=== PATIENT | male | born 1950 | race Caucasian/White ===

== ENCOUNTER 2018-02-25 19:43 | Inpatient (IN) ==
[2018-02-25] MEDS ORDERED: LORazepam 1 MG Tablet PO ONE (19:55)
--- NOTE | 2018-02-25 20:06 | ED ---
HPI General Chief Complaint: Psychiatric Symptoms Stated Complaint: Psych Screen/VCSO Time Seen by Provider: 02/25/18 19:45 Source: patient and old records reviewed (records from [facility] reviewed) Mode of arrival: other (police) Limitations: no limitations History of Present Illness HPI Narrative: Patient presents to the ED today as a transfer from [facility] in [place]. Patient is a Mehta acted patient who is here for psychiatric evaluation. Patient has been medically cleared from physicians staff at [place]. Blood work and vitals have been unremarkable/ stable for the past 2 days that patient has been Mehta acted at their facility. Patient has no complaints at this time. States that before coming into the hospital he was suicidal and was having thoughts of killing himself with a knife. MD complaint: Reports suicidal ideation Onset (ago): day(s) (2) Duration: constant History of same: No Relieving factors: none Exacerbating factors: none Context: Denies recent alcohol abuse and recent drug abuse Associated psychiatric symptoms: Reports none Associated symptoms: Denies confusion, headache, shortness of breath, nausea, vomiting and syncope Treatments prior to arrival: Reports placed on mental health hold Related Data Home Medications Medication Instructions Recorded Confirmed ibuprofen 600 mg PO TID PRN 02/25/18 02/25/18 lisinopril 20 mg PO DAILY 02/25/18 02/25/18 Allergies Allergy/AdvReac Type Severity Reaction Status Date / Time No Known Allergies Allergy Verified 02/25/18 19:55 Review of Systems ROS: all other systems reviewed are negative PMFSH History History Provided By: Patient, Medical Record and Law Enforcement Medical History Medical History Surgical history unknown (Acute) Depression (Acute) Osteoarthritis (Acute) Social History Social History Substance History: No History of Abuse Second Hand Smoke Exposure: No Smoking Status: Never smoker How Often Do You Have a Drink Containing Alcohol: Never Recent Travel in [facility] within the Last 8 Weeks: No Recent Out of Country Travel within the Last 8 Weeks: No Exam HENMT Head: normocephalic and atraumatic Nose: no nasal discharge and no epistaxis Mouth: moist mucous membranes Eyes Sclera: normal sclerae Pupils: PERRL Neck Neck: trachea midline and no JVD Resp Effort & Inspection: no use of accessory muscles Auscultation: clear to auscultation bilaterally Cardio Rate: regular rate Rhythm: regular rhythm Heart Sounds: no murmurs GI Inspection: non-distended Palpation: soft, no hepatosplenomegaly and nontender Skin General: dry skin (warm) Neuro General: alert and awake Cranial Nerves: other Speech: speech normal Motor: no movement abnormalities noted Extrem General: normal to inspection, no clubbing, no cyanosis and no edema Psych Mood: congruent mood Affect: normal affect Judgment: judgment good Course Initial Documented Vital Signs Temperature 98.3 F 02/25/18 19:47 Pulse Rate 90 02/25/18 19:47 Respiratory Rate 15 02/25/18 19:47 Blood Pressure 168/90 H 02/25/18 19:47 Pulse Oximetry 96 02/25/18 19:47 Last Documented Vital Signs Temperature 98.5 F 02/26/18 04:26 Pulse Rate 70 02/26/18 04:26 Respiratory Rate 18 02/26/18 04:26 Blood Pressure 137/70 02/26/18 04:26 Pulse Oximetry 95 02/26/18 04:26 Medical Decision Making MDM Narrative Medical decision making narrative: Patient is being brought to our facility medically cleared from [facility]. Is on a Mehta act hold Lab work from [facility] records show no abnormality. Vital signs upon arrival are normal blood pressure is 137/70, pulse 70, temp is 98.5, O2 sat room air is 95 Patient medically cleared at 2300 Patient awaits evaluation by psychiatry Medical Screen Exam Complete: Yes Emergency Medical Condition: Yes Differential Diagnosis Differential Diagnosis: suicidal ideation Discharge Plan Discharge Disposition Patient Disposition: 30 Still Patient Discharge Condition Condition: Stable Discharge Details Diagnosis: Suicidal ideation Physicians Team ED Provider: Franki Patel ED Midlevel Provider: Digna Glover Primary Care Provider: UNKNOWN, Rxs /Orders / Referrals /Forms Prescriptions: No Action lisinopril 20 mg Tablet 20 mg PO DAILY RF: 0 ibuprofen 600 mg Tablet 600 mg PO TID PRN (Reason: Pain, Mild) RF: 0 Status ED Status: Medically Cleared
[2018-02-26] MEDS ORDERED: LORazepam 1 MG Tablet PO PRN ×2 (09:54→10:11)
[2018-02-26] MEDS ORDERED: Bisacodyl 10 MG Supp RECTAL PRN (09:54)
[2018-02-26] MEDS ORDERED: Senna/Docusate Sodium 8.6/50 MG Tablet PO PRN (09:54)
[2018-02-26] MEDS ORDERED: Aluminum/Magnesium/Simethacone Susp 30 ML UDC PO PRN (09:54)
--- NOTE | 2018-02-26 10:00 | P.HPPSY ---
Provisional Diagnosis Admission Date: February 26, 2018 09:52 Diboll I.: Major depressive disorder Competence Certification of Person's Competence To Provide Express and Informed Consent I have personally examined Lai Jaquez, a person being served at [facility] on, February 26, 2018 0959. Express and informed consent means consent voluntarily given in writing, by a competent person, after sufficient explanation and disclosure of the subject matter involved to enable the person to make a knowing and willful decision without any element of force, fraud, deceit, duress, or other form of constraint or coercion. This person is 18 years of age or older, is not now known to be incompetent to consent to treatment with a guardian advocate, and does not have a health care surrogate or proxy currently making medical treatment decisions. I have found this person to be one of the following: [xxx] Competent to provide express and informed consent, as defined above, for voluntary admission to this facility and is competent to provide express and informed consent for treatment. He/she has the consistent capacity to make well reasoned, willful, and knowing decisions concerning his or her medical or mental health treatment. The person fully and consistently understands the purpose of the admission for examination/placement and is fully capable of personally exercising all rights assured under [place] Incompetent to provide express and informed consent to voluntary admission, and this is incompetent to provide express and informed consent to treatment. The person must be transferred to involuntary status and a petition for a guardian advocate filed with the Circuit Court. [] Refusing to provide express and informed consent to voluntary admission but is competent to provide express and informed consent for treatment. The person must be discharged or transferred to involuntary status. Form shall be completed within 24 hours of a person's arrival at the receiving facility and filed in the clinical record of each person: 1. Admitted on a voluntary basis 2. Permitted to provide express and informed consent to his/her own treatment 3. Allowed to transfer from involuntary to voluntary status 4. Prior to permitting a person to consent to his or her own treatment after having been previously found incompetent to consent to treatment. 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 Patient was found lying hospital bed noted B, cooperative. Patient stated feeling "tired" stating that he been having these thoughts lately of not wanting to be alive but denies any active thoughts of wanting to end his life at this time. He reports feeling helpless and hopeless along with decreased sleep, energy and concentration but no change in appetite. He mentions that since his longterm he has been feeling disconnected with society, reports having close friends of his several years ago and not having much social support or connection in the community. He states that he had come to the hospital because he had to "get out of where he was, get out of my mind". He mentions having tried to be more active and involved himself in activities but despite that continue to feel worsening depressive mood and increasing suicidal ideation. Patient denies any manic or psychotic symptoms at this time denies any perceptional services or delusions. Family psychiatric history: Denies Past psychiatric history: Previous psychiatric diagnoses depression, denies any previous psychiatric admission, suicide attempt or self-injurious behavior. Substance use history: Tobacco use, alcohol use 2-4 times per week usually 6-7 beers at a time. Patient reports remote marijuana use years ago. Patient denies any detox or rehabs in the past. 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 Allergies: NKDA Social history: Single, retired, worked at [employer] retired in 2016, domiciled currently with roommate (Keiko Paris) since 2013. Patient reports his emergency contact is his sister. - Inpatient Certification I certify that the inpatient services were ordered in accordance with Medicare regulations governing the order. This includes certification that hospital inpatient services are reasonable and necessary and in the case of services not specified as inpatient-only under 42 CFR 419.22(n), that they are appropriately provided as inpatient services in accordance to with the 2-midnight benchmark under 43 CFR 412.3(e) I certify that inpatient psychiatric hospital services are medically necessary. Evaluation and treatment and/or diagnostic testing are expected to improve the patient's condition. The patient needs on a daily basis, active treatment furnished directly by or requiring the supervision of inpatient psychiatric facility personnel. Estimated Total Length of Stay (Days): 7 Plans for Post Hospital Care: Not yet determined Review of Systems All other systems reviewed negative except as stated in HPI PMFSH - History History Provided By: Patient, Medical Record, Law Enforcement - Medical History Medical History: Medical History (Last Updated 02/25/18 @ 21:29 by Najma Gustafson RN) Surgical history unknown Depression Osteoarthritis - Tobacco History Second Hand Smoke Exposure: No Smoking Status: Never smoker - Alcohol History How Often Do You Have a Drink Containing Alcohol: Never - Substance Use History Substance History: No History of Abuse - Travel History Recent Travel in the [place] Within the Last 8 Weeks: No Recent Travel Out of the Country Within the Last 8 Weeks: No - Immunization History Tetanus Immunization: Unsure Quality Measures - Psychiatric History Psychological trauma history: Denies Violence risk to others in the last 6 months: Low Violence risk to self in the last 6 months: Elevated due to recent suicide ideations. - Substance Abuse History Drug or alcohol use in the past 12 months: See HPI - Patient Strengths Patient's strengths (minimum of 2): Verbal and communicative Medications and Allergies Active Medications: Active Medications Acetaminophen (Tylenol) 650 mg PO Q4H PRN PRN Reason: Pain 1-5 or Temp >101F Al Hydrox/Mg Hydrox/Simethicone (Mag-Al Plus Susp Liq) 30 ml PO Q6H PRN PRN Reason: DYSPEPSIA Al Hydroxide/Mg Hydroxide (Milk Of Magnesia Liq) 30 ml PO Q12H PRN PRN Reason: Mild Constipation Bisacodyl (Dulcolax Supp) 10 mg RECTAL DAILY PRN PRN Reason: SEVERE CONSITIPATION Fluoxetine HCl (Prozac) 20 mg PO DAILY THELMA Lactulose (Lactulose Liq) 30 ml PO DAILY PRN PRN Reason: SEVERE CONSITIPATION Lorazepam (Ativan) 1 mg PO Q6H PRN PRN Reason: MODERATE TO SEVERE ANXIETY Senna/Docusate Sodium (Yisel-Colace) 1 tab PO BID PRN PRN Reason: CONSTIPATION Sennosides (Senokot) 17.2 mg PO Q12H PRN PRN Reason: Moderate Constipation Trazodone HCl (Desyrel) 50 mg PO HS PRN PRN Reason: INSOMNIA Allergies Allergy/AdvReac Type Severity Reaction Status Date / Time No Known Allergies Allergy Verified 02/25/18 19:55 Home Medications Medication Instructions Recorded Confirmed Type ibuprofen 600 mg PO TID PRN 02/25/18 02/25/18 History lisinopril 20 mg PO DAILY 02/25/18 02/25/18 History Exam Vital signs: Vital Signs 02/25/18 19:47 02/26/18 04:26 Temperature 98.3 F 98.5 F Pulse Rate 90 70 Respiratory Rate 15 18 Blood Pressure 168/90 H 137/70 Pulse Oximetry 96 95 Intake & Output 02/25/18 02/26/18 02/26/18 18:59 06:59 18:59 Weight 63.503 kg Narrative: Patient not noted to be in acute distress, no gross motor abnormalities, noted to be cachectic and malnourished, no signs of tremor or EPS, no psychomotor agitation or retardation. - Constitutional no acute distress, disheveled, cooperative Mental Status Examination Appearance: Appropriate, Disheveled Consciousness: Alert Orientation: Person, Place, Date/Time Motor Activity: Normal gait Speech: Unremarkable Language: Adequate Fund of Knowledge: Inadequate Attention and Concentration: Adequate Memory: Unremarkable Mood: Sad Affect: Sad Thought Process & Associations: Intact, Linear Thought Content: Appropriate Hallucination Type: None Delusion Type: None Suicidal Ideation: Yes Suicidal Plan: No Suicidal Intention: No Homicidal Ideation: No Homicidal Plan: No Homicidal Intention: No Insight: Fair Judgment: Impulsive Assessment and Plan - Assessment (1) Major depressive disorder Code(s): F32.9 - Major depressive disorder, single episode, unspecified Status : Acute - Plan Plan: Estimated LOS: [] days Patient is a 68-year-old man, single, domiciled with roommate, retired , with a past psychiatric history of depression, no previous psychiatric admissions, no previous suicide attempts who was transferred from [facility] under Mehta act due to suicide ideation. Patient this time continues report depressed mood along with continue suicide ideation which patient agrees to voluntary admission for stabilization. We will start patient on Prozac 20 mg p.o. daily this patient had good response to this in the past, will also add trazodone 50 mg as needed for insomnia, Lorazepam 0.5 mg every 12 hours as needed for anxiety. Collateral admission pending. Social work intervention for psychosocial assessment. Discharge planning in progress. Justification for Continued Inpatient Stay: At risk of further decompensation at lower level care. (1) Major depressive disorder Qualifiers: Major depression recurrence: unspecified whether recurrent Active/Remission status: currently active Major depression episode severity: severe Psychotic features: without psychotic features Qualified Code(s): F32.2 - Major depressive disorder, single episode, severe without psychotic features
[2018-02-26] MEDS: FLUoxetine 20 MG Capsule PO SCH (11:09)
--- NOTE | 2018-02-26 14:24 | P.DIET ---
Nutritional Evaluation Type of nutrition evaluation: initial Nutrition consult regarding: Diet Evaluation Nutrition screening: MDC (Malnutrition) Objective - Diagnosis Major Depressive Disorder - Objective Body Mass Index: 20.1 % IBW: 85 (IBW = 164lb) Body Weight Used for Calculations: Actual Energy Needs - Lower Range (kCal/kg): 30 Energy Needs - Upper Range (kCal/kg): 35 Lower Limit kCal/kg (kCals): 1,905 Upper Limit kCal/kg (kCals): 2,223 Lower Limit Protein Factor (Grams per Kg): 1.1 Upper Limit Protein Factor (Grams per Kg): 1.3 Lower Protein Needs (Protein): 70 Upper Protein Needs (Protein): 83 Dietitian Reviewed in Medical Record: Current diet, Curent medications, Intake & Output, Labs, Medical history Diet Order: Regular Objective Comments: PMH: depression, osteoarthritis Assessment Assessment: Pt currently here for psych evaluation, pt has been cleared by medical staff at [facility], labs are WNL per MD note. MDC for malnutrition received on 02/26. RD to recommend Ensure Enlive TID for PO supplement. Monitor PO and supplement intake. Labs reviewed, dietitian following. Recommendations: 1. RD to recommend Ensure Enlive TID for PO supplement 2. Monitor PO and supplement intake 3. Dietitian following Dietitian to Monitor: Lab values, Supplement acceptance, Intake & Output, PO Intake, Medical course
--- NOTE | 2018-02-26 15:15 | P.CON ---
History of Present Illness Service: [facility] Consult date: 02/26/18 Requesting Physician: Yonatan Rivas Reason for Consult: Hx HTN, corneal cancer Primary Care Provider: UNKNOWN Chief Complaint: "Right plantar area callous, Right leg wound" History of Present Illness: Patient is a 68-year-old male with past medical history of HTN, right corneal cancer who initially came in to [facility] in [place] for psychiatric evaluation and was Mehta acted secondary to suicidal ideation. Patient is now admitted to inpatient psychiatry unit for further evaluation. Consulted for assistance with HTN, history of corneal cancer. Patient seen and examined today. Reports is doing okay. States that he has hypertension and was on lisinopril 10 mg but has never taken the medication. States that he has corneal cancer and had a right corneal surgery twice and has not gone to doctors. Unable to see in the right eye. States that he came in with suicidal ideation but states that he does not have any suicidal ideation right now or homicidal states that for the past 2 years he is unable to maintain his weight. States that he is eating the best that he can however he eats box foods for the most part because he does not want to cook. States he has callous on his right foot that is painful when walking. He places foam to reduce the friction. He also has right leg wound, states it got scraped this morning does not even know about it until this afternoon. Otherwise, denies SOB / dyspnea. Denies chest pain, palpitations, headaches, dizziness. Denies fevers , chills, n/v/d. Denies dysuria. Review of Systems All other systems reviewed negative except as stated in HPI PMFSH - History History Provided By: Patient, Medical Record, Law Enforcement - Medical History Medical History: Medical History (Last Updated 02/26/18 @ 15:45 by IRVIN Marquez) Corneal carcinoma Depression Osteoarthritis - Surgical History Surgical History: Surgical History (Last Updated 02/26/18 @ 15:45 by IRVIN Marquez) History of arthroplasty of right hip - Family History Family History: Family History (Last Updated 02/26/18 @ 15:45 by IRVIN Marquez) Mother Breast cancer - Tobacco History Second Hand Smoke Exposure: No Smoking Status: Never smoker Tobacco Type: Cigarettes Packs Per Day: 1 - Alcohol History How Often Do You Have a Drink Containing Alcohol: Never - Substance Use History Substance History: No History of Abuse - Travel History Recent Travel in the [place] Within the Last 8 Weeks: No Recent Travel Out of the Country Within the Last 8 Weeks: No - Immunization History Tetanus Immunization: Unsure Medications and Allergies Active Medications: Active Medications Acetaminophen (Tylenol) 650 mg PO Q4H PRN PRN Reason: Pain 1-5 or Temp >101F Al Hydrox/Mg Hydrox/Simethicone (Mag-Al Plus Susp Liq) 30 ml PO Q6H PRN PRN Reason: DYSPEPSIA Al Hydroxide/Mg Hydroxide (Milk Of Magnesia Liq) 30 ml PO Q12H PRN PRN Reason: Mild Constipation Bisacodyl (Dulcolax Supp) 10 mg RECTAL DAILY PRN PRN Reason: SEVERE CONSITIPATION Fluoxetine HCl (Prozac) 20 mg PO DAILY THELMA Last Admin: 02/26/18 11:09 Dose: 20 mg Lactulose (Lactulose Liq) 30 ml PO DAILY PRN PRN Reason: SEVERE CONSITIPATION Lorazepam (Ativan) 0.5 mg PO Q12H PRN PRN Reason: MODERATE TO SEVERE ANXIETY Senna/Docusate Sodium (Yisel-Colace) 1 tab PO BID PRN PRN Reason: CONSTIPATION Sennosides (Senokot) 17.2 mg PO Q12H PRN PRN Reason: Moderate Constipation Trazodone HCl (Desyrel) 50 mg PO HS PRN PRN Reason: INSOMNIA Allergies Allergy/AdvReac Type Severity Reaction Status Date / Time No Known Allergies Allergy Verified 02/25/18 19:55 Home Medications Medication Instructions Recorded Confirmed Type ibuprofen 600 mg PO TID PRN 02/25/18 02/25/18 History lisinopril 20 mg PO DAILY 02/25/18 02/25/18 History Physical Exam Vital signs: Vital Signs 02/25/18 19:47 02/26/18 04:26 Temperature 98.3 F 98.5 F Pulse Rate 90 70 Respiratory Rate 15 18 Blood Pressure 168/90 H 137/70 Pulse Oximetry 96 95 Intake & Output 02/25/18 02/26/18 02/26/18 18:59 06:59 18:59 Weight 63.503 kg Narrative: GENERAL: This is a thin appearing, appears older than stated age patient, in no apparent distress. SKIN: Warm and dry. Xerosis BLE. Right plantar area callous. RLE abrasion. HEENT: Normocephalic. Pupils equal round and reactive. Nose without bleeding. Airway patent. NECK: Trachea midline. CARDIOVASCULAR: Regular rate and rhythm without murmurs, gallops, or rubs. RESPIRATORY: Clear to auscultation. Breath sounds equal bilaterally. No wheezes , rales, or rhonchi. GASTROINTESTINAL: Abdomen soft, non-tender, nondistended. Bowel Sounds normoactive x4. MUSCULOSKELETAL: Extremities without clubbing, cyanosis, or edema. NEUROLOGICAL: Awake and alert. Oriented to time, place, person. No focal neuro deficit. Moves all extremities. Normal speech. Assessment and Plan - Plan Patient is a 68-year-old male with past medical history of HTN, right corneal cancer who initially came in to [facility] in [place] for psychiatric evaluation and was Mehta acted secondary to suicidal ideation. Patient is now admitted to inpatient psychiatry unit for further evaluation. Consulted for assistance with HTN, history of corneal cancer. Depression Suicidal Ideation -managed By psychiatry team HTN, hx -not on any meds currently -Monitor BP. Will restart meds if needed Corneal carcinoma -Unable to see on his right eye -Redness and dryness, no pain -Artificial tears and ointment Weight loss -Mostly related to not preparing meals as patient reported -May do ensure with meals Wound, Right leg Right foot plantar callous -Foam dsg, bordered gauze -Change dsg q3days DVT Prop ambulatory Thank you for this consultation. We will follow patient with you. Code Status: Full Code Discussed Condition With: Patient, nursing Discharge Planning: DC disposition by primary team
[2018-02-26] MEDS: Artificial Tears Opth Oint 3.5 GM Tube RIGHT EYE SCH (21:20)
[2018-02-27 07:29] LABS: Baso % (Auto) 0.8 % (0.0-2.0); Eos # (Auto) 0.1 th/mm3 (0.0-0.4); Eos % (Auto) 1.6 % (0.0-4.0); Hematocrit 34.4 % (39.0-51.0); Hemoglobin 12.3 gm/dL (13.0-17.0); Lymph # (Auto) 1.4 th/mm3 (1.0-4.8); Lymph % (Auto) 23.5 % (9.0-44.0); Mean Corpuscular HGB Conc 35.9 % (32.0-36.0); Mean Corpuscular Hemoglobin 34.2 pg (27.0-34.0); Mean Corpuscular Volume 95.2 fL (80.0-100.0); Mean Platelet Volume 7.2 fL (7.0-11.0); Mono # (Auto) 0.7 th/mm3 (0.0-0.9); Mono % (Auto) 11.9 % (0.0-8.0); Neut # (Auto) 3.7 th/mm3 (1.8-7.7); Neut % (Auto) 62.2 % (16.0-70.0); Platelet Count 284 th/mm3 (150-450); Red Blood Count 3.61 mil/mm3 (4.50-5.90); Red Cell Distribution Width 12.6 % (11.6-17.2)
[2018-02-27] MEDS: FLUoxetine 20 MG Capsule PO SCH (08:26)
[2018-02-27 08:30] LABS: Chol/HDL Ratio 2.72 Ratio; HDL Cholesterol 43.3 mg/dL (40.0-60.0); Thyroid Stimulating Hormone 2.11 uIU/mL (0.358-3.740)
[2018-02-27] MEDS: Artificial Tears Opth Oint 3.5 GM Tube RIGHT EYE SCH ×2 (08:37→20:17)
--- NOTE | 2018-02-27 10:59 | P.HPPSY ---
Provisional Diagnosis Admission Date: February 26, 2018 09:52 [place].: Major depressive disorder Competence Certification of Person's Competence To Provide Express and Informed Consent I have personally examined Lai Jaquez, a person being served at [facility] on, February 27, 2018 1025. Express and informed consent means consent voluntarily given in writing, by a competent person, after sufficient explanation and disclosure of the subject matter involved to enable the person to make a knowing and willful decision without any element of force, fraud, deceit, duress, or other form of constraint or coercion. This person is 18 years of age or older, is not now known to be incompetent to consent to treatment with a guardian advocate, and does not have a health care surrogate or proxy currently making medical treatment decisions. I have found this person to be one of the following: [] Competent to provide express and informed consent, as defined above, for voluntary admission to this facility and is competent to provide express and informed consent for treatment. He/she has the consistent capacity to make well reasoned, willful, and knowing decisions concerning his or her medical or mental health treatment. The person fully and consistently understands the purpose of the admission for examination/placement and is fully capable of personally exercising all rights assured under [place] [] Incompetent to provide express and informed consent to voluntary admission, and this is incompetent to provide express and informed consent to treatment. The person must be transferred to involuntary status and a petition for a guardian advocate filed with the Circuit Court. [] Refusing to provide express and informed consent to voluntary admission but is competent to provide express and informed consent for treatment. The person must be discharged or transferred to involuntary status. Form shall be completed within 24 hours of a person's arrival at the receiving facility and filed in the clinical record of each person: 1. Admitted on a voluntary basis 2. Permitted to provide express and informed consent to his/her own treatment 3. Allowed to transfer from involuntary to voluntary status 4. Prior to permitting a person to consent to his or her own treatment after having been previously found incompetent to consent to treatment. History of Present Illness History of Present Illness: This is a 68-year-old male with a past psychiatric history of depression who presents to the hospital as a Mehta Act for suicidal ideation. 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 He explains he had a girlfriend of 15 years who helped him through some issues who also in 2011 from emphysema. He has been feeling depressed for the past 6 months and feels the worst in the morning with bad thoughts about the past. States he wakes up and asks himself whether he really wants to go through the day. No suicidal attempt, but he states "it seems like it's getting there." No prior suicidal attempts. About 2-3 nocturnal awakenings per night. Appetite is good. He is tired throughout the day and complains of lack of energy. He states that he is not as active as he would like to be and explains that his physical constraints (right corneal carcinoma, right hip arthroplasty, and foot callus) do not help. States the walker he uses at the hospital has helped with his activity. No past physical or sexual abuse. No auditory hallucinations, but complains of vague "funny" visual hallucinations (lights, not people). Complains of abdominal tightness and bilateral shoulder stiffness. Past Psychiatric History: Depression in 1999 after mother (treated w / Prozac). Past Medical History: HTN, Right corneal neoplasm treated in 2016 with lack of follow up, Right hip arthroplasty (6 years ago) Social History: Economics degree from [employer] in [place]. Has worked at [employer] for the past 11-12 years. Was at age of 19 for 2-3 years and has had several relationships since then. Female sexual preference. No children. Currently lives in an apartment on [address] with 1 roommate, but states that this is another stressor and he is not comfortable living there. He has 1 sister with an "ok" relationship who lives in [place], [place]. He thought about relocating to [place] but decided not to because he states it is too cold there. Smoker (1 pack per day), Drinks a 4 or 6 pack of alcohol (beer) about 3-4 days per week - did attend a Detox program in his 20s. Has had multiple DUIs and hasn 't been able to drive since 2001. Smoked marijuana in the past. Family Psychiatric History: None per patient Allergies: NKDA - Inpatient Certification I certify that the inpatient services were ordered in accordance with Medicare regulations governing the order. This includes certification that hospital inpatient services are reasonable and necessary and in the case of services not specified as inpatient-only under 42 CFR 419.22(n), that they are appropriately provided as inpatient services in accordance to with the 2-midnight benchmark under 43 CFR 412.3(e) I certify that inpatient psychiatric hospital services are medically necessary. Evaluation and treatment and/or diagnostic testing are expected to improve the patient's condition. The patient needs on a daily basis, active treatment furnished directly by or requiring the supervision of inpatient psychiatric facility personnel. Estimated Total Length of Stay (Days): 7 Plans for Post Hospital Care: Not yet determined PMFSH - History History Provided By: Patient - Medical History Medical History: Medical History (Last Updated 02/26/18 @ 15:45 by IRVIN Marquez) Corneal carcinoma Depression Osteoarthritis - Surgical History Surgical History: Surgical History (Last Updated 02/26/18 @ 15:45 by IRVIN Marquez) History of arthroplasty of right hip - Family History Family History: Family History (Last Updated 02/26/18 @ 15:45 by IRVIN Marquez) Mother Breast cancer - Tobacco History Second Hand Smoke Exposure: No Tobacco Use In Past 30 Days: Yes Smoking Status: Current every day smoker Tobacco Type: Cigarettes Packs Per Day: 1 - Alcohol History How Often Do You Have a Drink Containing Alcohol: Monthly or less - Substance Use History Substance History: No History of Abuse - Travel History Recent Travel in the USA Within the Last 8 Weeks: No Recent Travel Out of the Country Within the Last 8 Weeks: No - Immunization History Tetanus Immunization: Unsure Medications and Allergies Active Medications: Active Medications Acetaminophen (Tylenol) 650 mg PO Q4H PRN PRN Reason: Pain 1-5 or Temp >101F Al Hydrox/Mg Hydrox/Simethicone (Mag-Al Plus Susp Liq) 30 ml PO Q6H PRN PRN Reason: DYSPEPSIA Al Hydroxide/Mg Hydroxide (Milk Of Magnesia Liq) 30 ml PO Q12H PRN PRN Reason: Mild Constipation Artificial Tears (Tears Naturale Opth Drops) 1 drop RIGHT EYE Q4H PRN PRN Reason: Itching eye Artificial Tears (Lacrilube Opth Oint) 1 applicatio RIGHT EYE BID [facility] Last Admin: 02/27/18 08:37 Dose: 1 applicatio Bacitracin (Baciguent Oint) 1 applicatio TOPICAL EVERY OTHER DAY [facility] Bisacodyl (Dulcolax Supp) 10 mg RECTAL DAILY PRN PRN Reason: SEVERE CONSITIPATION Fluoxetine HCl (Prozac) 20 mg PO DAILY [facility] Last Admin: 02/27/18 08:26 Dose: 20 mg Lactulose (Lactulose Liq) 30 ml PO DAILY PRN PRN Reason: SEVERE CONSITIPATION Lorazepam (Ativan) 0.5 mg PO Q12H PRN PRN Reason: MODERATE TO SEVERE ANXIETY Senna/Docusate Sodium (Yisel-Colace) 1 tab PO BID PRN PRN Reason: CONSTIPATION Sennosides (Senokot) 17.2 mg PO Q12H PRN PRN Reason: Moderate Constipation Trazodone HCl (Desyrel) 50 mg PO HS PRN PRN Reason: INSOMNIA Allergies Allergy/AdvReac Type Severity Reaction Status Date / Time No Known Allergies Allergy Verified 02/25/18 19:55 Home Medications Medication Instructions Recorded Confirmed Type ibuprofen 600 mg PO TID PRN 02/25/18 02/25/18 History lisinopril 20 mg PO DAILY 02/25/18 02/25/18 History Results - Labs CBC & Chem 7: 02/27/18 06:04 Labs: Laboratory Results - last 24 hr 02/27/18 02/27/18 06:04 06:04 WBC 6.0 RBC 3.61 L Hgb 12.3 L Hct 34.4 L MCV 95.2 MCH 34.2 H MCHC 35.9 RDW 12.6 Plt Count 284 MPV 7.2 Neut % (Auto) 62.2 Lymph % (Auto) 23.5 [place] % (Auto) 11.9 H Eos % (Auto) 1.6 Baso % (Auto) 0.8 Neut # (Auto) 3.7 Lymph # (Auto) 1.4 [place] # (Auto) 0.7 Eos # (Auto) 0.1 Baso # (Auto) 0.0 WBC Differential . Differential Comment Auto diff final Triglycerides 74 Cholesterol 118 L LDL Cholesterol, Calc 60 HDL Cholesterol 43.3 Cholesterol/HDL Ratio 2.72 Vitamin B12 387 TSH 2.110 Exam Vital signs: Vital Signs 02/26/18 17:15 02/26/18 18:00 02/27/18 06:00 Temperature 98.1 F 97.6 F 98.2 F Pulse Rate 80 65 70 Respiratory Rate 18 16 16 Blood Pressure 158/83 H 125/73 156/72 H Pulse Oximetry 99 97 92 L Intake & Output 02/26/18 02/27/18 02/27/18 18:59 06:59 18:59 Weight 62.34 kg 47.1 kg Other: Weight On Admission 62.34 kg Mental Status Examination Appearance: Appropriate, Disheveled Consciousness: Alert Orientation: Person, Place, Date/Time Motor Activity: Normal gait Speech: Unremarkable Language: Adequate Fund of Knowledge: Inadequate Attention and Concentration: Adequate Memory: Unremarkable Mood: Sad Affect: Sad, Blunt Thought Process & Associations: Intact, Linear Thought Content: Appropriate Hallucination Type: Visual (vague ) Delusion Type: None Suicidal Ideation: Yes Suicidal Plan: No Suicidal Intention: No Homicidal Ideation: No Homicidal Plan: No Homicidal Intention: No Insight: Fair Judgment: Poor Assessment and Plan - Assessment (1) Suicidal ideation Code(s): R45.851 - Suicidal ideations Status: Acute (2) Major depressive disorder Code(s): F32.9 - Major depressive disorder, single episode, unspecified Status : Acute - Plan Plan: This is a 68-year-old male with a past psychiatric history of depression who presents to the hospital as a mehta act due to a major depressive episode with suicidal ideation but no attempts. - Admit for stabilization - Administer 20 mg Prozac - Follow up daily - Re-assess in one week (2) Major depressive disorder Qualifiers: Qualified Code(s): F33.2 - Major depressive disorder, recurrent severe without psychotic features
--- NOTE | 2018-02-27 11:05 | P.PNPSY ---
Subjective Remarks: Patient initially admitted by Dr. Yonatan Rivas, his H&P reviewed and agreed with. Patient is signed in on a voluntary status. I agree with that. I have also finished the initial psychiatric admission template orders. Patient seen in his room with nurse Giselle medical student Natalia. Patient gives multiple month history of increased depression with mid insomnia and a.m. energy sad mood throughout the day he states his appetite is poor he has lost some weight, says his concentration and attention is fair defiant he is more short tempered and not coping as well with minor stress. He is isolated from his friends. He denies voices or visions with this. He does acknowledge some mild increase alcohol use. He states he was a more serious drinking in the past as a young man he has had 3-4 DUIs but denies any other legal issues with that. States he experimented with marijuana as a younger man also. He states there is some mild suicidal ideation at this time. He states he did see a psychiatrist in the early around the time of the of his mother was on various antidepressants for a while stating the Prozac did not help him at that time. Kang denies inpatient psychiatric care. Patient states she was once in his early 20s for about 2 or 3 years there is no children. He was dating a lady for about 15 years for the past 24 around 2009 or . He has had no significant relationships since then. He lives with a roommate. Always thinking about leaving that situation. 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 At this time patient continues to meet criteria for inpatient psychiatric hospitalization we will continue him with his Prozac no change and his trazodone no change will refrain from any benzodiazepines. Denies any history of physical or sexual abuse. Health history in the family. He does have a sister lives in [place] they states she is fairly close for now will assess various options for this gentleman Review of Systems Patient has cancer in his right eye complains of some chronic pain towards his right hip and right leg old fracture right hip Mental Status Examination Appearance: Appropriate Consciousness: Alert Orientation: Person, Place, Date/Time, Situation Motor Activity: Normal gait Speech: Unremarkable Language: Adequate Fund of Knowledge: Adequate Attention and Concentration: Adequate Memory: Unremarkable Mood: Sad Affect: Other (Decreased range and intensity) Thought Process & Associations: Intact, Linear Thought Content: Appropriate Hallucination Type: None Delusion Type: None Suicidal Ideation: Yes Suicidal Plan: No Suicidal Intention: No Homicidal Ideation: No Homicidal Plan: No Homicidal Intention: No Insight: Fair Judgment: Impulsive Assessment and Plan - Assessment (1) Major depressive disorder Code(s): F32.9 - Major depressive disorder, single episode, unspecified Status : Acute - Plan Plan: Patient remains severely depressed with vague suicidal ideation, without psychosis. Justification for Continued Inpatient Stay: At this time patient with decompensated placed in a lower level of care Discharge Planning: To be determined past back to his apartment perhaps consideration of relocating closer to his sister Request Healthcare Surrogate/Guardian Advocate?: No (1) Major depressive disorder Qualifiers: Major depression recurrence: recurrent Active/Remission status: currently active Major depression episode severity: severe Psychotic features: without psychotic features Qualified Code(s): F33.2 - Major depressive disorder, recurrent severe without psychotic features
[2018-02-27 15:15] LABS: Hemoglobin A1c 5.6 % (4.3-6.0)
--- NOTE | 2018-02-27 15:29 | P.PNIM ---
Subjective Interval history: Follow-up visit depression, HTN. Patient seen and examined today. Reports he is doing okay. Discussed with patient elevated BP. States that he probably has elevated BP because he has a new environment. Otherwise, denies pain and discomfort. Denies SOB/ dyspnea. Denies chest pain, palpitations, headaches, dizziness. Denies fevers, chills, n/v/d. Denies dysuria. Physical Exam Vital signs: Vital Signs 02/26/18 17:15 02/26/18 18:00 02/27/18 06:00 Temperature 98.1 F 97.6 F 98.2 F Pulse Rate 80 65 70 Respiratory Rate 18 16 16 Blood Pressure 158/83 H 125/73 156/72 H Pulse Oximetry 99 97 92 L Intake & Output 02/26/18 02/27/18 02/27/18 18:59 06:59 18:59 Weight 62.34 kg 47.1 kg Other: Weight On Admission 62.34 kg Narrative: GENERAL: This is a thin appearing, appears older than stated age patient, in no apparent distress. SKIN: Warm and dry. Xerosis BLE. Right plantar area callous. RLE abrasion. HEENT: Normocephalic. Pupils equal round and reactive. Nose without bleeding. Airway patent. NECK: Trachea midline. CARDIOVASCULAR: Regular rate and rhythm without murmurs, gallops, or rubs. RESPIRATORY: Clear to auscultation. Breath sounds equal bilaterally. No wheezes , rales, or rhonchi. GASTROINTESTINAL: Abdomen soft, non-tender, nondistended. Bowel Sounds normoactive x4. MUSCULOSKELETAL: Extremities without clubbing, cyanosis, or edema. NEUROLOGICAL: Awake and alert. Oriented to time, place, person. No focal neuro deficit. Moves all extremities. Normal speech. Results - Labs CBC & Chem 7: 02/27/18 06:04 Laboratory Results - last 24 hr 02/27/18 02/27/18 06:04 06:04 WBC 6.0 RBC 3.61 L Hgb 12.3 L Hct 34.4 L MCV 95.2 MCH 34.2 H MCHC 35.9 RDW 12.6 Plt Count 284 MPV 7.2 Neut % (Auto) 62.2 Lymph % (Auto) 23.5 [place] % (Auto) 11.9 H Eos % (Auto) 1.6 Baso % (Auto) 0.8 Neut # (Auto) 3.7 Lymph # (Auto) 1.4 [place] # (Auto) 0.7 Eos # (Auto) 0.1 Baso # (Auto) 0.0 WBC Differential . Differential Comment Auto diff final Triglycerides 74 Cholesterol 118 L LDL Cholesterol, Calc 60 HDL Cholesterol 43.3 Cholesterol/HDL Ratio 2.72 Vitamin B12 387 TSH 2.110 Assessment and Plan - Plan Patient is a 68-year-old male with past medical history of HTN, right corneal cancer who initially came in to [facility] in [place] for psychiatric evaluation and was Mehta acted secondary to suicidal ideation. Patient is now admitted to inpatient psychiatry unit for further evaluation. Consulted for assistance with HTN, history of corneal cancer. Depression Suicidal Ideation -managed By psychiatry team HTN, hx -not on any meds currently, previously was on Lisinopril 10mg -BP 150s, Start lisinopril 10mg daily -Monitor BP. Corneal carcinoma -Unable to see on his right eye -Redness and dryness, no pain -Artificial tears and ointment Weight loss -Mostly related to not preparing meals as patient reported -May do ensure with meals Wound, Right leg Right foot plantar callous -Foam dsg, bordered gauze -Change dsg q3days DVT Prop ambulatory CODE STATUS Full Code Discussed with patient, nursing Discharge Planning: DC disposition by primary team
[2018-02-27] MEDS: traZODone 50 MG Tablet PO PRN (20:16)
[2018-02-28 08:43] LABS: Albumin 3.1 g/dL (3.4-5.0); Anion Gap 7 meq/L (5-15); Aspartate Aminotransferase 22 U/L (15-37); Blood Urea Nitrogen 12 mg/dL (7-18); Calcium 8.2 mg/dL (8.5-10.1); Carbon Dioxide 26.8 meq/L (21.0-32.0); Chloride 107 meq/L (98-107); Glomerular Filtration Rate Greater Than 89 mL/min (>89); Glucose,Random 81 mg/dL (74-106); Potassium 3.6 meq/L (3.5-5.1); Sodium 141 meq/L (136-145)
[2018-02-28 08:44] LABS: Alanine Aminotransferase 18 U/L (12-78)
[2018-02-28 08:46] LABS: Alkaline Phosphatase 63 U/L (45-117); Total Protein 6.7 g/dL (6.4-8.2)
[2018-02-28] MEDS ORDERED: Lisinopril 10 MG Tablet PO SCH (09:00)
--- NOTE | 2018-02-28 09:08 | P.PNPSY ---
Subjective Remarks: Patient was seen and examined. He mentions he is "doing better, slept well, and had pleasant dreams." He states he has calmed down and is no longer having suicidal thoughts. No longer having vague visual hallucinations. No auditory hallucination. No HI or SI. He questions how much longer he would have to stay here and acknowledges he may need at least one more day because he states he "still has some issues to address" with himself. Appetite is good, however he complains of constipation. No abdominal pain or hematochezia. Mental Status Examination Appearance: Appropriate Consciousness: Alert Orientation: Person, Place, Date/Time Motor Activity: Normal gait Speech: Slow Language: Adequate Fund of Knowledge: Inadequate Attention and Concentration: Adequate Memory: Unremarkable Mood: Sad Affect: Sad, Blunt Thought Process & Associations: Intact, Linear Thought Content: Appropriate Delusion Type: None Suicidal Ideation: No Suicidal Plan: No Suicidal Intention: No Homicidal Ideation: No Homicidal Plan: No Homicidal Intention: No Insight: Fair Judgment: Poor Assessment and Plan - Assessment (1) Suicidal ideation Code(s): R45.851 - Suicidal ideations Status: Acute (2) Major depressive disorder Code(s): F32.9 - Major depressive disorder, single episode, unspecified Status : Acute - Plan Plan: This is a 68 year-old male with a past history of depression who presents voluntarily with an acute episode of major depressive disorder with suicidal ideation. Patient is sleeping better and his suicidal thoughts have subsided. However, he acknowledges he may need more time here to fully recover. - Continue 20 mg Prozac once daily - Continue 50 mg Trazadone once daily at bedtime - Continue follow-up daily - Re-assess in a few days for possible discharge Request Healthcare Surrogate/Guardian Advocate?: No (2) Major depressive disorder Qualifiers: Qualified Code(s): F33.2 - Major depressive disorder, recurrent severe without psychotic features
[2018-02-28] MEDS: Artificial Tears Opth Oint 3.5 GM Tube RIGHT EYE SCH ×2 (10:10→20:24)
[2018-02-28] MEDS: Artificial Tears Opth Drops 15 ML Bottle RIGHT EYE PRN (10:10)
[2018-02-28] MEDS: FLUoxetine 20 MG Capsule PO SCH (10:10)
--- NOTE | 2018-02-28 10:52 | P.PNPSY ---
Subjective Remarks: Patient seen in his room with nurse Mona, chart reviewed, patient compliant medication. Patient states he slept somewhat better last night since the unit was quieter. He does state he feels less anxious and intense. He does denies suicidality at this time. Though there is still a hopelessness and helplessness and him and you will be with him. Patient does express himself well show some insight. We will transfer patient to the B unit so he may participate in the more active therapeutic milieu. For now continue medication no change Review of Systems All other systems reviewed negative except as stated in HPI Mental Status Examination Appearance: Appropriate Consciousness: Alert Orientation: Person, Place, Date/Time Motor Activity: Normal gait Speech: Unremarkable Language: Adequate Fund of Knowledge: Adequate Attention and Concentration: Adequate Memory: Unremarkable Mood: Sad Affect: Sad, Blunt Thought Process & Associations: Intact, Linear Thought Content: Appropriate Delusion Type: None Suicidal Ideation: No Suicidal Plan: No Suicidal Intention: No Homicidal Ideation: No Homicidal Plan: No Homicidal Intention: No Insight: Fair Judgment: Poor Assessment and Plan - Assessment (1) Major depressive disorder Code(s): F32.9 - Major depressive disorder, single episode, unspecified Status : Acute - Plan Plan: Patient continues depressed though slightly less anxious. Compliant medication. No other still some hopelessness and helplessness involved with this. We will transfer patient to the B unit for participation in a more therapeutic environment Justification for Continued Inpatient Stay: At this time patient with decompensated placed on a lower level of care Discharge Planning: To be determined probably back to his home Request Healthcare Surrogate/Guardian Advocate?: No (1) Major depressive disorder Qualifiers: Major depression recurrence: recurrent Active/Remission status: currently active Major depression episode severity: severe Psychotic features: without psychotic features Qualified Code(s): F33.2 - Major depressive disorder, recurrent severe without psychotic features
--- NOTE | 2018-02-28 13:12 | ECG ---
Date Performed: 02/27/2018 Time Performed: 13:30:25 PTAGE: 68 years EKG: Sinus rhythm NORMAL ECG NO PREVIOUS TRACING DOCTOR: Obdulia Castellano Interpretating Date/Time 02/28/2018 13:09:08
--- NOTE | 2018-02-28 16:40 | P.PNIM ---
Subjective Interval history: Follow-up visit depression, HTN. Patient seen and examined today. Reports he is doing okay. States he took his lisinopril today. Denies pain and discomfort. Denies SOB/ dyspnea. Denies chest pain, palpitations, headaches, dizziness. Denies fevers, chills, n/v/d. Denies dysuria. Physical Exam Vital signs: Vital Signs 02/28/18 04:47 Temperature 97.7 F Pulse Rate 65 Respiratory Rate 16 Blood Pressure 168/82 H Pulse Oximetry 93 L Intake & Output 02/27/18 02/28/18 02/28/18 18:59 06:59 18:59 Weight 47.1 kg Narrative: GENERAL: This is a thin appearing, appears older than stated age patient, in no apparent distress. SKIN: Warm and dry. Xerosis BLE. Right plantar area callous. RLE abrasion. HEENT: Normocephalic. Pupils equal round and reactive. Nose without bleeding. Airway patent. NECK: Trachea midline. CARDIOVASCULAR: Regular rate and rhythm without murmurs, gallops, or rubs. RESPIRATORY: Clear to auscultation. Breath sounds equal bilaterally. No wheezes , rales, or rhonchi. GASTROINTESTINAL: Abdomen soft, non-tender, nondistended. Bowel Sounds normoactive x4. MUSCULOSKELETAL: Extremities without clubbing, cyanosis, or edema. NEUROLOGICAL: Awake and alert. Oriented to time, place, person. No focal neuro deficit. Moves all extremities. Normal speech. Results - Labs CBC & Chem 7: 02/27/18 06:04 02/28/18 07:38 Laboratory Results - last 24 hr 02/27/18 02/28/18 06:04 07:38 Sodium 141 Potassium 3.6 Chloride 107 Carbon Dioxide 26.8 Anion Gap 7 BUN 12 Creatinine 0.72 Estimated GFR Greater than 89 Random Glucose 81 Hemoglobin A1c 5.6 Calcium 8.2 L Total Bilirubin 0.4 AST 22 ALT 18 Alkaline Phosphatase 63 Total Protein 6.7 Albumin 3.1 L Assessment and Plan - Plan Patient is a 68-year-old male with past medical history of HTN, right corneal cancer who initially came in to [facility] in [place] for psychiatric evaluation and was Mehta acted secondary to suicidal ideation. Patient is now admitted to inpatient psychiatry unit for further evaluation. Consulted for assistance with HTN, history of corneal cancer. Depression Suicidal Ideation -managed By psychiatry team HTN, hx -not on any meds currently, previously was on Lisinopril 10mg -Lisinopril 10mg daily -Monitor BP trend. Slightly elevated today. Will trend in a few more days. Corneal carcinoma -Unable to see on his right eye -Redness and dryness, no pain -Artificial tears and ointment Weight loss -Mostly related to not preparing meals as patient reported -May do ensure with meals Wound, Right leg Right foot plantar callous -Foam dsg, bordered gauze -Change dsg q3days DVT Prop ambulatory CODE STATUS Full Code Discussed with patient, nursing Discharge Planning: DC disposition by primary team
[2018-02-28] MEDS: traZODone 50 MG Tablet PO PRN (20:45)
[2018-03-01] MEDS ORDERED: Lisinopril 20 MG Tablet PO SCH (09:00)
[2018-03-01] MEDS: Artificial Tears Opth Drops 15 ML Bottle RIGHT EYE PRN (09:11)
[2018-03-01] MEDS: FLUoxetine 20 MG Capsule PO SCH (09:13)
[2018-03-01] MEDS: Artificial Tears Opth Oint 3.5 GM Tube RIGHT EYE SCH ×2 (09:14→21:46)
--- NOTE | 2018-03-01 13:46 | P.PNPSY ---
Subjective Remarks: Reviewed electronic medical record and discussed case with staff. Follow up was conducted in the patient's room with SAMI Hoffman present. His nurse reports that he has shown some improvement. She advises that he has been compliant with his medications and has had no behavioral issues. He reports that he's feeling better and eating okay. He states that he could "sleep better". His affect is somber but he does laugh occasionally at appropriate times. He denies being suicidal or experiencing AVH. Mental Status Examination Appearance: Appropriate Consciousness: Alert Orientation: Person, Place, Date/Time Motor Activity: Normal gait Speech: Unremarkable Language: Adequate Fund of Knowledge: Adequate Attention and Concentration: Adequate Memory: Unremarkable Mood: Sad Affect: Sad, Blunt Thought Process & Associations: Intact, Linear Thought Content: Appropriate Hallucination Type: Visual (vague ) Delusion Type: None Suicidal Ideation: No Suicidal Plan: No Suicidal Intention: No Homicidal Ideation: No Homicidal Plan: No Homicidal Intention: No Insight: Fair Judgment: Poor Assessment and Plan - Assessment (1) Major depressive disorder Code(s): F32.9 - Major depressive disorder, single episode, unspecified Status : Acute - Plan Plan: Patient will be reevaluated by the attending psychiatrist. Continue with current treatment plan. Justification for Continued Inpatient Stay: Moving this patient to a less restrictive environment would likely result in decompensation. Request Healthcare Surrogate/Guardian Advocate?: No (1) Major depressive disorder Qualifiers: Major depression recurrence: recurrent Active/Remission status: currently active Major depression episode severity: severe Psychotic features: without psychotic features Qualified Code(s): F33.2 - Major depressive disorder, recurrent severe without psychotic features
--- NOTE | 2018-03-01 14:04 | P.DIET ---
Nutritional Evaluation Type of nutrition evaluation: follow-up Nutrition consult regarding: Diet Evaluation Nutrition screening: MDC (Malnutrition) Subjective Subjective Comments: Pt paritcipating in a group session when visit attempted. Nursing Staff reports pt "really good" w/po intake; 100% po for meals today. Objective - Diagnosis Major Depressive Disorder - Objective % IBW: 85 (IBW = 164lb) Body Weight Used for Calculations: Actual Energy Needs - Lower Range (kCal/kg): 30 Energy Needs - Upper Range (kCal/kg): 35 Lower Limit kCal/kg (kCals): 1,905 Upper Limit kCal/kg (kCals): 2,223 Lower Limit Protein Factor (Grams per Kg): 1.1 Upper Limit Protein Factor (Grams per Kg): 1.3 Lower Protein Needs (Protein): 70 Upper Protein Needs (Protein): 83 Dietitian Reviewed in Medical Record: Current diet, Curent medications, Intake & Output, Labs, Medical history Diet Order: Regular Objective Comments: PMH: depression, osteoarthritis A1C 5.6 Feeding - Current PO Supplement Current Supplement: Ensure Enlive Current Frequency of Supplement: Three times a day Current kCals Provided by Supplement: 350 Current Protein Provided by Supplement: 20 Assessment Assessment: Pt is a nutrition follow-up for MDC-malnutrition. Pt w/Adequate po intake 100% for all meals here. Continue Ensure Enlive TID. Send double portions w/meals. Question Accuracy of wt 18 w/a 15.2 kg wt loss x 24-hr(?). Dietitian following. Recommendations: 1. Continue Ensure Enlive TID 2. Send double portions w/meals 3. Question Accuracy of wt 02/28/18 w/a 15.2 kg wt loss x 24-hr(?) 4. Dietitian following Dietitian to Monitor: Lab values, Supplement acceptance, Intake & Output, Weight change, PO Intake, Medical course
--- NOTE | 2018-03-01 16:39 | P.PNIM ---
Subjective Interval history: Follow-up visit depression, HTN. Patient seen and examined today. Reports he is doing okay. States he does not want to take the lisinopril anymore as it makes him feel "weird." Patient states that he can try other medications. Denies pain and discomfort. Denies SOB/ dyspnea. Denies chest pain, palpitations, headaches, dizziness. Denies fevers, chills, n/v/d. Denies dysuria. Physical Exam Vital signs: Vital Signs 02/28/18 17:59 03/01/18 05:44 Temperature 98.2 F 98.2 F Pulse Rate 77 67 Respiratory Rate 18 15 Blood Pressure 175/92 H 142/73 H Pulse Oximetry 94 L 96 Intake & Output 02/28/18 03/01/18 03/01/18 18:59 06:59 18:59 Intake Total 240 / 240 Balance 240 / 240 Intake: Oral 240 / 240 Narrative: GENERAL: This is a thin appearing, appears older than stated age patient, in no apparent distress. SKIN: Warm and dry. Xerosis BLE. Right plantar area callous. RLE abrasion. HEENT: Normocephalic. Pupils equal round and reactive. Nose without bleeding. Airway patent. NECK: Trachea midline. CARDIOVASCULAR: Regular rate and rhythm without murmurs, gallops, or rubs. RESPIRATORY: Clear to auscultation. Breath sounds equal bilaterally. No wheezes , rales, or rhonchi. GASTROINTESTINAL: Abdomen soft, non-tender, nondistended. Bowel Sounds normoactive x4. MUSCULOSKELETAL: Extremities without clubbing, cyanosis, or edema. NEUROLOGICAL: Awake and alert. Oriented to time, place, person. No focal neuro deficit. Moves all extremities. Normal speech. Results - Labs CBC & Chem 7: 02/27/18 06:04 02/28/18 07:38 Assessment and Plan - Plan Patient is a 68-year-old male with past medical history of HTN, right corneal cancer who initially came in to [facility] in [place] for psychiatric evaluation and was Mehta acted secondary to suicidal ideation. Patient is now admitted to inpatient psychiatry unit for further evaluation. Consulted for assistance with HTN, history of corneal cancer. Depression Suicidal Ideation -managed By psychiatry team HTN -not on any meds currently, previously was on Lisinopril 10mg -Lisinopril has been increased today to 20 mg but patient declines to take the medication if it continues. Amenable to taking another medication. -Start amlodipine 5 mg tomorrow and adjust as needed. -Monitor BP trend. Corneal carcinoma -Unable to see on his right eye -Redness and dryness, no pain -Artificial tears and ointment Weight loss -Mostly related to not preparing meals as patient reported -May do ensure with meals -Dietary consult Wound, Right leg Right foot plantar callous -Foam dsg, bordered gauze -Change dsg q3days DVT Prop ambulatory CODE STATUS Full Code Discussed with patient, nursing Discharge Planning: DC disposition by primary team
[2018-03-01] MEDS: traZODone 50 MG Tablet PO PRN (21:46)
[2018-03-02] MEDS: amLODIPine 5 MG Tablet PO SCH (10:10)
[2018-03-02] MEDS: FLUoxetine 20 MG Capsule PO SCH (10:10)
[2018-03-02] MEDS: Artificial Tears Opth Drops 15 ML Bottle RIGHT EYE PRN ×2 (10:11→21:16)
[2018-03-02] MEDS: Artificial Tears Opth Oint 3.5 GM Tube RIGHT EYE SCH ×2 (11:10→21:16)
[2018-03-02] MEDS ORDERED: LORazepam 0.5 MG Tablet PO PRN (12:04)
--- NOTE | 2018-03-02 12:48 | P.PNPSY ---
Subjective Remarks: Reviewed electronic medical records and discussed case with staff. Follow-up was conducted in the day room. Patient was found sitting at the table. He states that he is "doing okay". He advises that he had just finished eating some pumpkin pie. States that he is sleeping good and his appetite is been good. Denies any side effects from medications. He reports his mood as being "pretty good". He certainly has a euthymic affect. Very pleasant and appropriate throughout the follow-up. Mental Status Examination Appearance: Appropriate Consciousness: Alert Orientation: Person, Place, Date/Time Motor Activity: Normal gait Speech: Unremarkable Language: Adequate Fund of Knowledge: Adequate Attention and Concentration: Adequate Memory: Unremarkable Mood: Sad Affect: Sad, Blunt Thought Process & Associations: Intact, Linear Thought Content: Appropriate Hallucination Type: Visual (vague ) Delusion Type: None Suicidal Ideation: No Suicidal Plan: No Suicidal Intention: No Homicidal Ideation: No Homicidal Plan: No Homicidal Intention: No Insight: Fair Judgment: Poor Assessment and Plan - Assessment (1) Major depressive disorder Code(s): F32.9 - Major depressive disorder, single episode, unspecified Status : Acute - Plan Plan: Patient will be reevaluated by the attending psychiatrist. Continue with current treatment plan. Justification for Continued Inpatient Stay: Moving this patient to a less restrictive environment would likely result in decompensation. Request Healthcare Surrogate/Guardian Advocate?: No (1) Major depressive disorder Qualifiers: Major depression recurrence: recurrent Active/Remission status: currently active Major depression episode severity: severe Psychotic features: without psychotic features Qualified Code(s): F33.2 - Major depressive disorder, recurrent severe without psychotic features
--- NOTE | 2018-03-02 14:58 | P.PNIM ---
Subjective Interval history: Follow up hypertension and depression Patient seen and examined while resting in bed. He states he ate his lunch and is trying to rest. Patient took his Norvasc this morning. He states this medication was better and did not have the same side effects as the Lisinopril. He is in agreement with continuing with this med. Denies any discomfort or pain. No chest pain, cough, fevers or chills. Physical Exam Vital signs: Last Vital Signs Temp 97.9 F 03/02/18 06:28 Pulse 57 L 03/02/18 06:28 Resp 17 03/02/18 06:28 BP 135/78 03/02/18 06:28 Pulse Ox 99 03/02/18 06:28 Intake & Output 02/28/18 03/01/18 03/02/18 03/03/18 06:59 06:59 06:59 06:59 Intake Total 480 / 480 720 / 720 Balance 480 / 480 720 / 720 Weight 47.1 kg Narrative: GENERAL: This is a thin appearing, appears older than stated age patient, in no apparent distress. SKIN: Warm and dry HEENT: normocephalic, atraumatic. 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 RESPIRATORY: Even rise and fall of the chest bilaterally. No wheezes, rales, or rhonchi. GASTROINTESTINAL: Abdomen soft, non-tender, nondistended. MUSCULOSKELETAL: Extremities without clubbing, cyanosis, or edema. NEUROLOGICAL: Awake and alert. Oriented to time, place, person. No focal neuro deficit. Moves all extremities. Normal speech. Results Labs CBC & Chem 7: 02/27/18 06:04 02/28/18 07:38 Assessment and Plan Plan Patient is a 68-year-old male with past medical history of HTN, right corneal cancer who initially came in to [facility] in [place] for psychiatric evaluation and was Mehta acted secondary to suicidal ideation. Patient is now admitted to inpatient psychiatry unit for further evaluation. Consulted for assistance with HTN, history of corneal cancer. Depression Suicidal Ideation -managed By psychiatry team Hypertension, essential - evaluated 03/02/18, improved -pt was not previously taken blood pressure meds -was started on Lisinopril and this was increased to 20 mg but patient declined to take the medication due to side effects. Amenable to taking another medication. -Started amlodipine 5 mg today, patient states he tolerated this well and will continue taking this -Monitor BP trend. Corneal carcinoma - reviewed 03/02/18 -Unable to see on his right eye -Redness and dryness, no pain -Artificial tears and ointment Weight loss - reviewed 03/02/18 -Mostly related to not preparing meals as patient reported -May do ensure with meals -Dietary consult Wound, Right leg Right foot plantar callous -Foam dsg, bordered gauze -Change dsg q3days DVT Prop ambulatory CODE STATUS Full Code Progress Note: Quality VTE Deep Vein Thrombosis/Pulmonary Embolism Present on Admission: No
[2018-03-02] MEDS: traZODone 50 MG Tablet PO PRN (21:17)
[2018-03-03 09:22] LABS: Baso # (Auto) 0.1 th/mm3 (0.0-0.2); Baso % (Auto) 0.9 % (0.0-2.0); Eos # (Auto) 0.1 th/mm3 (0.0-0.4); Eos % (Auto) 1.9 % (0.0-4.0); Hematocrit 35.1 % (39.0-51.0); Hemoglobin 12.7 gm/dL (13.0-17.0); Lymph # (Auto) 1.1 th/mm3 (1.0-4.8); Lymph % (Auto) 16.7 % (9.0-44.0); Mean Corpuscular Hemoglobin 35.2 pg (27.0-34.0); Mono # (Auto) 0.6 th/mm3 (0.0-0.9); Mono % (Auto) 9.1 % (0.0-8.0); Neut # (Auto) 4.9 th/mm3 (1.8-7.7); Neut % (Auto) 71.4 % (16.0-70.0); Platelet Count 254 th/mm3 (150-450); Red Blood Count 3.62 mil/mm3 (4.50-5.90); Red Cell Distribution Width 13.1 % (11.6-17.2); White Blood Count 6.9 th/mm3 (4.0-11.0)
[2018-03-03 09:23] LABS: Mean Corpuscular HGB Conc 36.3 % (32.0-36.0)
[2018-03-03 09:54] LABS: Anion Gap 7 meq/L (5-15); Blood Urea Nitrogen 13 mg/dL (7-18); Calcium 8.3 mg/dL (8.5-10.1); Carbon Dioxide 29.3 meq/L (21.0-32.0); Chloride 106 meq/L (98-107); Glomerular Filtration Rate Greater Than 89 mL/min (>89); Glucose,Random 120 mg/dL (74-106); Potassium 3.5 meq/L (3.5-5.1); Sodium 142 meq/L (136-145)
[2018-03-03] MEDS: FLUoxetine 20 MG Capsule PO SCH (10:46)
[2018-03-03] MEDS: amLODIPine 5 MG Tablet PO SCH (10:46)
[2018-03-03] MEDS: Artificial Tears Opth Oint 3.5 GM Tube RIGHT EYE SCH ×2 (13:06→21:25)
--- NOTE | 2018-03-03 16:39 | P.PNPSY ---
Subjective Remarks: Reviewed electronic medical records and discussed case with staff. Follow-up was conducted in the day room where he was found playing cards. Reports that he feels "okay". States that he is sleeping and eating well. He denies any medical concerns at this time. States that his mood has been improved. I note the internal medicine consult, your input is appreciated. Mental Status Examination Appearance: Appropriate Consciousness: Alert Orientation: Person, Place, Date/Time Motor Activity: Normal gait Speech: Unremarkable Language: Adequate Fund of Knowledge: Adequate Attention and Concentration: Adequate Memory: Unremarkable Mood: Sad Affect: Sad, Blunt Thought Process & Associations: Intact, Linear Thought Content: Appropriate Hallucination Type: Visual (vague ) Delusion Type: None Suicidal Ideation: No Suicidal Plan: No Suicidal Intention: No Homicidal Ideation: No Homicidal Plan: No Homicidal Intention: No Insight: Fair Judgment: Poor Assessment and Plan - Assessment (1) Major depressive disorder Code(s): F32.9 - Major depressive disorder, single episode, unspecified Status : Acute - Plan Plan: Patient will be reevaluated by the attending psychiatrist. Continue with current treatment plan. Spoke with keycase assembler discharge planning is in progress. Justification for Continued Inpatient Stay: Moving this patient to a less restrictive environment would likely result in decompensation. Request Healthcare Surrogate/Guardian Advocate?: No (1) Major depressive disorder Qualifiers: Major depression recurrence: recurrent Active/Remission status: currently active Major depression episode severity: severe Psychotic features: without psychotic features Qualified Code(s): F33.2 - Major depressive disorder, recurrent severe without psychotic features
--- NOTE | 2018-03-03 17:07 | P.PNIM ---
Subjective Interval history: Follow up hypertension, right leg wound, right foot plantar callous Patient tolerated blood pressure medication. He states he does not feel side effects with this medication as he has with the Lisinopril. Dressing to right callous wound in place. Physical Exam Vital signs: Last Vital Signs Temp 98.4 F 03/03/18 06:20 Pulse 70 03/03/18 06:20 Resp 18 03/03/18 06:20 BP 151/80 H 03/03/18 06:20 Pulse Ox 93 L 03/03/18 06:20 Intake & Output 03/01/18 03/02/18 03/03/18 03/04/18 06:59 06:59 06:59 06:59 Intake Total 480 / 480 1080 / 1080 720 / 720 Balance 480 / 480 1080 / 1080 720 / 720 Narrative: GENERAL: This is a thin appearing, appears older than stated age patient, in no apparent distress. SKIN: Warm and dry HEENT: normocephalic, atraumatic. 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 RESPIRATORY: Even rise and fall of the chest bilaterally. No wheezes, rales, or rhonchi. GASTROINTESTINAL: Abdomen soft, non-tender, nondistended. MUSCULOSKELETAL: Extremities without clubbing, cyanosis, or edema. NEUROLOGICAL: Awake and alert. Oriented to time, place, person. No focal neuro deficit. Moves all extremities. Normal speech. Results Labs CBC & Chem 7: 03/03/18 08:35 03/03/18 08:35 Assessment and Plan Plan Patient is a 68-year-old male with past medical history of HTN, right corneal cancer who initially came in to [facility] in [place] for psychiatric evaluation and was Mehta acted secondary to suicidal ideation. Patient is now admitted to inpatient psychiatry unit for further evaluation. Consulted for assistance with HTN, history of corneal cancer. Depression Suicidal Ideation -managed By psychiatry team Hypertension, essential - evaluated 03/03/18, improved -pt was not previously taken blood pressure meds -was started on Lisinopril and this was increased to 20 mg but patient declined to take the medication due to side effects. Amenable to taking another medication. -Started amlodipine 5 mg today, patient states he tolerated this well and will continue taking this -Monitor BP trend. Corneal carcinoma - reviewed 03/03/18 -Unable to see on his right eye -Redness and dryness, no pain -Artificial tears and ointment Weight loss - reviewed 03/03/18 -Mostly related to not preparing meals as patient reported -May do ensure with meals -Dietary consult Wound, Right leg - reviewed 03/03/18 -slight redness around scabbed over area -reassess tomorrow Right foot plantar callous - reviewed 03/03/18, stable -Foam dsg, bordered gauze -Change dsg q3days DVT Prop ambulatory CODE STATUS Full Code Progress Note: Quality VTE Deep Vein Thrombosis/Pulmonary Embolism Present on Admission: No
[2018-03-03] MEDS: Artificial Tears Opth Drops 15 ML Bottle RIGHT EYE PRN (21:26)
[2018-03-03] MEDS: traZODone 50 MG Tablet PO PRN (21:26)
[2018-03-04] MEDS: amLODIPine 5 MG Tablet PO SCH ×3 (09:00→20:24)
[2018-03-04] MEDS: FLUoxetine 20 MG Capsule PO SCH (09:00)
[2018-03-04] MEDS: Artificial Tears Opth Oint 3.5 GM Tube RIGHT EYE SCH ×2 (09:01→20:24)
[2018-03-04] MEDS: Artificial Tears Opth Drops 15 ML Bottle RIGHT EYE PRN (09:02)
--- NOTE | 2018-03-04 16:58 | P.PNIM ---
Subjective Interval history: Follow up hypertension, right leg wound, right foot plantar callous Patient seen and examined while resting in bed. He complains of constipation. He took some Milk of Mag earlier but has not had a bowel movement yet. He reports some diffuse, generalized abdominal pain. Patient denies chest pain, shortness of breath or palpitations. Right leg wound scabbed over and continuing to improve. Physical Exam Vital signs: Last Vital Signs Temp 98.6 F 03/04/18 16:39 Pulse 87 03/04/18 16:39 Resp 18 03/04/18 16:39 BP 194/91 H 03/04/18 16:39 Pulse Ox 92 L 03/04/18 16:39 Intake & Output 03/02/18 03/03/18 03/04/18 03/05/18 06:59 06:59 06:59 06:59 Intake Total 480 / 480 1080 / 1080 1080 / 1080 1080 / 1080 Balance 480 / 480 1080 / 1080 1080 / 1080 1080 / 1080 Narrative: GENERAL: This is a thin appearing, appears older than stated age patient, in no apparent distress. SKIN: Warm and dry HEENT: normocephalic, atraumatic. 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 RESPIRATORY: Even rise and fall of the chest bilaterally. No wheezes, rales, or rhonchi. GASTROINTESTINAL: Abdomen soft, non-tender, nondistended. MUSCULOSKELETAL: Extremities without clubbing, cyanosis, or edema. Right lower extremity below knee 1.5 cm scabbed over area with mild erythema surrounding it. NEUROLOGICAL: Awake and alert. Oriented to time, place, person. No focal neuro deficit. Moves all extremities. Normal speech. Results Labs CBC & Chem 7: 03/03/18 08:35 03/03/18 08:35 Assessment and Plan Plan Patient is a 68-year-old male with past medical history of HTN, right corneal cancer who initially came in to [facility] for psychiatric evaluation and was Mehta acted secondary to suicidal ideation. Patient is now admitted to inpatient psychiatry unit for further evaluation. Consulted for assistance with HTN, history of corneal cancer. Depression Suicidal Ideation -managed By psychiatry team Hypertension, essential - evaluated 03/04/18, uncontrolled -pt was not previously taken blood pressure meds -was started on Lisinopril and this was increased to 20 mg but patient declined to take the medication due to side effects. Amenable to taking another medication. -Started amlodipine 5 mg, patient states he tolerated this well and will continue taking this. Increased to 5 mg PO BID 03/04/18. -Monitor BP trend. Constipation - evaluated 03/04/18 -started Yisel-Colace daily Corneal carcinoma - reviewed 03/04/18 -Unable to see on his right eye -Redness and dryness, no pain -Artificial tears and ointment Weight loss - reviewed 03/04/18 -Mostly related to not preparing meals as patient reported -May do ensure with meals -Dietary consult Wound, Right leg - reviewed 03/04/18 -slight redness around scabbed over area -reassess tomorrow Right foot plantar callous - reviewed 03/03/18, stable -Foam dsg, bordered gauze -Change dsg q3days DVT Prop ambulatory CODE STATUS Full Code Progress Note: Quality VTE Deep Vein Thrombosis/Pulmonary Embolism Present on Admission: No
[2018-03-04] MEDS: Acetaminophen 325 MG Tablet PO PRN (17:58)
--- NOTE | 2018-03-04 18:27 | P.PNPSY ---
Subjective Remarks: Reviewed electronic medical records and discussed case with staff. Follow-up was conducted in the day room with SAMI Acosta present. Patient states that his mood has been fine but he is just constipated. He did receive some as needed medication for it. States that he is sleeping and eating well. He is still asking about discharge and states, "I have some things I have to lying up ". His affect is euthymic. Mental Status Examination Appearance: Appropriate Consciousness: Alert Orientation: Person, Place, Date/Time Motor Activity: Normal gait Speech: Unremarkable Language: Adequate Fund of Knowledge: Adequate Attention and Concentration: Adequate Memory: Unremarkable Mood: Sad Affect: Sad, Blunt Thought Process & Associations: Intact, Linear Thought Content: Appropriate Hallucination Type: Visual (vague ) Delusion Type: None Suicidal Ideation: No Suicidal Plan: No Suicidal Intention: No Homicidal Ideation: No Homicidal Plan: No Homicidal Intention: No Insight: Fair Judgment: Poor Assessment and Plan - Assessment (1) Major depressive disorder Code(s): F32.9 - Major depressive disorder, single episode, unspecified Status : Acute - Plan Plan: Patient will be reevaluated by the attending psychiatrist. Continue with current treatment plan. Justification for Continued Inpatient Stay: Moving this patient to a less restrictive environment would likely result in decompensation. Request Healthcare Surrogate/Guardian Advocate?: No (1) Major depressive disorder Qualifiers: Major depression recurrence: recurrent Active/Remission status: currently active Major depression episode severity: severe Psychotic features: without psychotic features Qualified Code(s): F33.2 - Major depressive disorder, recurrent severe without psychotic features
[2018-03-04] MEDS: traZODone 50 MG Tablet PO PRN (20:24)
[2018-03-04] MEDS ORDERED: amLODIPine 5 MG Tablet PO SCH (21:00)
[2018-03-05] MEDS: FLUoxetine 20 MG Capsule PO SCH (08:37)
[2018-03-05] MEDS: amLODIPine 5 MG Tablet PO SCH ×2 (08:37→21:34)
[2018-03-05] MEDS: Senna/Docusate Sodium 8.6/50 MG Tablet PO SCH (08:37)
[2018-03-05] MEDS: Acetaminophen 325 MG Tablet PO PRN ×2 (08:38→17:12)
[2018-03-05] MEDS: Artificial Tears Opth Oint 3.5 GM Tube RIGHT EYE SCH (08:39)
--- NOTE | 2018-03-05 09:20 | P.PNIM ---
Subjective Interval history: Follow up constipation, hypertension Patient is resting in bed. He states his blood pressure was elevated yesterday as he was having abdominal cramps secondary to being constipated. He has not yet had a bowel movement. He was given MOM yesterday and patient was started on Yisel-colace. He states he would like to hold off on taking anything else for now as he is having a urge and may go soon. Denies abdominal pain at present time. No nausea or vomiting. Blood pressure improved. Physical Exam Vital signs: Last Vital Signs Temp 98.2 F 03/05/18 05:21 Pulse 79 03/05/18 05:21 Resp 18 03/05/18 05:21 BP 134/66 03/05/18 05:21 Pulse Ox 95 03/05/18 05:21 Intake & Output 03/03/18 03/04/18 03/05/18 03/06/18 06:59 06:59 06:59 06:59 Intake Total 1080 / 1080 1080 / 1080 1080 / 1080 Balance 1080 / 1080 1080 / 1080 1080 / 1080 Narrative: GENERAL: This is a thin appearing, appears older than stated age patient, in no apparent distress. SKIN: Warm and dry HEENT: normocephalic, atraumatic. 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 RESPIRATORY: Even rise and fall of the chest bilaterally. No wheezes, rales, or rhonchi. GASTROINTESTINAL: Abdomen soft, non-tender, nondistended. MUSCULOSKELETAL: Extremities without clubbing, cyanosis, or edema. Right lower extremity below knee 1.5 cm scabbed over area with mild erythema surrounding it. NEUROLOGICAL: Awake and alert. Oriented to time, place, person. No focal neuro deficit. Moves all extremities. Normal speech. Results Labs CBC & Chem 7: 03/03/18 08:35 03/03/18 08:35 Assessment and Plan Plan Patient is a 68-year-old male with past medical history of HTN, right corneal cancer who initially came in to [facility] in [place] for psychiatric evaluation and was Mehta acted secondary to suicidal ideation. Patient is now admitted to inpatient psychiatry unit for further evaluation. Consulted for assistance with HTN, history of corneal cancer. Depression Suicidal Ideation -managed By psychiatry team Hypertension, essential - evaluated 03/05/18, stable -pt was not previously taken blood pressure meds -was started on Lisinopril and this was increased to 20 mg but patient declined to take the medication due to side effects. Amenable to taking another medication. -Started amlodipine 5 mg, patient states he tolerated this well and will continue taking this. Increased to 5 mg PO BID 03/04/18. -Monitor BP trend. Constipation - evaluated 03/05/18 -continue Yisel-Colace daily -MOM PRN Corneal carcinoma - reviewed 03/04/18 -Unable to see on his right eye -Redness and dryness, no pain -Artificial tears and ointment Weight loss - reviewed 03/04/18 -Mostly related to not preparing meals as patient reported -May do ensure with meals -Dietary consult Wound, Right leg - reviewed 03/05/18 -slight redness around scabbed over area -no e/o infection Right foot plantar callous - reviewed 03/05/18, stable -Foam dsg, bordered gauze -Change dsg q3days DVT Prop ambulatory CODE STATUS Full Code Progress Note: Quality VTE Deep Vein Thrombosis/Pulmonary Embolism Present on Admission: No
--- NOTE | 2018-03-05 12:50 | P.PNPSY ---
Subjective Remarks: Reviewed electronic medical record and discussed with nursing staff. Patient is in his room trying to go to the bathroom. He has been constipated x 3 days. Rounded with SAMI Hoskins. Patient states his starting to feel better and even laughed when talking about the complications with his constipation. He talked about his past and how his medical complications have changed his lifestyle. Denies SI/HI. Review of Systems All other systems reviewed negative except as stated in HPI Mental Status Examination Appearance: Appropriate Consciousness: Alert Orientation: Person, Place, Date/Time Motor Activity: Normal gait Speech: Unremarkable Language: Adequate Fund of Knowledge: Adequate Attention and Concentration: Adequate Memory: Unremarkable Mood: Sad Affect: Sad, Blunt Thought Process & Associations: Intact, Linear Thought Content: Appropriate Hallucination Type: Visual (vague ) Delusion Type: None Suicidal Ideation: No Suicidal Plan: No Suicidal Intention: No Homicidal Ideation: No Homicidal Plan: No Homicidal Intention: No Insight: Fair Judgment: Poor Assessment and Plan - Assessment (1) Major depressive disorder Code(s): F32.9 - Major depressive disorder, single episode, unspecified Status : Acute - Plan Plan: Patient will be reevaluated by the attending psychiatrist. Continue with current treatment plan. Justification for Continued Inpatient Stay: Moving patient to a less restrictive environment may result in his decompensation. Request Healthcare Surrogate/Guardian Advocate?: No (1) Major depressive disorder Qualifiers: Major depression recurrence: recurrent Active/Remission status: currently active Major depression episode severity: severe Psychotic features: without psychotic features Qualified Code(s): F33.2 - Major depressive disorder, recurrent severe without psychotic features
[2018-03-05] MEDS ORDERED: Magnesium Citrate Liq 300 ML Bottle PO ONE (13:00)
[2018-03-05] MEDS: traZODone 50 MG Tablet PO PRN (21:34)
[2018-03-06] MEDS: Artificial Tears Opth Oint 3.5 GM Tube RIGHT EYE SCH ×3 (00:06→21:17)
[2018-03-06] MEDS: Artificial Tears Opth Drops 15 ML Bottle RIGHT EYE PRN (09:31)
[2018-03-06] MEDS: Acetaminophen 325 MG Tablet PO PRN ×2 (09:32→21:27)
[2018-03-06] MEDS: amLODIPine 5 MG Tablet PO SCH ×2 (10:42→21:17)
[2018-03-06] MEDS: FLUoxetine 20 MG Capsule PO SCH (10:43)
[2018-03-06] MEDS: Senna/Docusate Sodium 8.6/50 MG Tablet PO SCH (10:43)
--- NOTE | 2018-03-06 14:24 | P.PNPSY ---
Subjective Remarks: Patient seen in exam room with medical student Natalia, chart reviewed, patient compliant medication. Patient mood is improved she is showing some increased focus and affect. There is no stating some difficulty with his female roommate. She does not pay the electric bill the lease is in her name. Patient is upset because he is in the past few months. The entire electric bill. However patient states she has been in contact with his sister who lives in [facility] she wishes him to "feel and stay with her. He has been there before. However this will mean him returning to his apartment for period of time while making these arrangements. He is willing to do that albeit somewhat reluctantly. He denies suicidality or homicidality voices or visions. Thus we will consider discharging him tomorrow to his apartment to follow-up stroke [employer] act Review of Systems All other systems reviewed negative except as stated in HPI Mental Status Examination Appearance: Appropriate Consciousness: Alert Orientation: Person, Place, Date/Time, Situation Motor Activity: Normal gait Speech: Unremarkable Language: Adequate Fund of Knowledge: Adequate Attention and Concentration: Adequate Memory: Unremarkable Mood: Sad Affect: Other (Slight decreased range and intensity) Thought Process & Associations: Intact Thought Content: Appropriate Hallucination Type: Visual (Denies today) Delusion Type: None Suicidal Ideation: No Suicidal Plan: No Suicidal Intention: No Homicidal Ideation: No Homicidal Plan: No Homicidal Intention: No Insight: Fair Judgment: Adequate (Fair) Assessment and Plan - Assessment (1) Major depressive disorder Code(s): F32.9 - Major depressive disorder, single episode, unspecified Status : Acute - Plan Plan: Patient's mood and affect are improving, the continued difficulty with his roommate though they need to work that out among themselves. Consider discharge tomorrow Justification for Continued Inpatient Stay: At this time patient may decompensated placed in a lower level of care Discharge Planning: Return to his apartment Request Healthcare Surrogate/Guardian Advocate?: No (1) Major depressive disorder Qualifiers: Major depression recurrence: recurrent Active/Remission status: currently active Major depression episode severity: severe Psychotic features: without psychotic features Qualified Code(s): F33.2 - Major depressive disorder, recurrent severe without psychotic features
--- NOTE | 2018-03-06 17:17 | P.PN ---
Subjective Interval history: Follow-up visit for hypertension. Patient seen and examined sitting up in the day room in no acute distress. He denies any dizziness, lightheadedness, fevers , chills, nausea, vomiting, diarrhea or ankle swelling. Does complain of a sore plantar callus. Voices no other acute concerns or complaints at the moment. Nursing staff does not report any events overnight or today. Physical Exam Vital signs: Vital Signs 03/05/18 17:37 03/06/18 06:23 Temperature 98.2 F 97.9 F Pulse Rate 96 H 73 Respiratory Rate 16 18 Blood Pressure 147/76 H 134/69 Pulse Oximetry 94 L 95 Intake & Output 03/05/18 03/06/18 03/06/18 18:59 06:59 18:59 Weight 51.6 kg Other: Date of Last Bowel Movement 03/04/18 Narrative: GENERAL: This is a thin appearing, in no apparent distress. SKIN: Warm and dry HEENT: normocephalic, atraumatic. 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 NECK: Trachea midline. CARDIOVASCULAR: Regular rate and rhythm without murmurs, gallops, or rubs. RESPIRATORY: Clear breath sounds throughout. No wheezes, rales, or rhonchi. GASTROINTESTINAL: Abdomen soft, non-tender, nondistended. MUSCULOSKELETAL: Extremities without clubbing, cyanosis, or edema. Right foot plantar callus. NEUROLOGICAL: Awake and alert. Oriented to time, place, person. No focal neuro deficit. Moves all extremities. Normal speech. Results - Labs CBC & Chem 7: 03/03/18 08:35 03/03/18 08:35 Assessment and Plan - Plan Patient is a 68-year-old male with past medical history of HTN, right corneal cancer who initially came in to [facility] in [place] for psychiatric evaluation and was Mehta acted secondary to suicidal ideation. Patient is now admitted to inpatient psychiatry unit for further evaluation. Consulted for assistance with HTN, history of corneal cancer. Depression Suicidal Ideation -managed By psychiatry team Hypertension, essential - evaluated 03/05/18, stable -pt was not previously taken blood pressure meds -was started on Lisinopril and this was increased to 20 mg but patient declined to take the medication due to side effects. Amenable to taking another medication. -Started amlodipine 5 mg, patient states he tolerated this well and will continue taking this. Increased to 5 mg PO BID 03/04/18. -Blood pressure has been stable, discussed with patient continuing Norvasc. Constipation - evaluated 03/05/18 -continue Yisel-Colace daily -MOM PRN Corneal carcinoma - reviewed 03/04/18 -Unable to see on his right eye -Redness and dryness, no pain -Artificial tears and ointment Weight loss - reviewed 03/04/18 -Mostly related to not preparing meals as patient reported -Dietary consult recommendations for Ensure 3 times daily, double portions with meals Wound, Right leg - reviewed 03/05/18 -slight redness around scabbed over area -no e/o infection Right foot plantar callous - reviewed 03/05/18, stable -Foam dsg, bordered gauze -Change dsg q3days DVT Prop ambulatory Patient medically stable. [facility] will sign off, please reconsult if needed. Discussed Condition With: Patient and RN.
[2018-03-06] MEDS: traZODone 50 MG Tablet PO PRN (21:18)
[2018-03-07 05:36] VITALS: BP 139/72; PULSE 66; RESP 14; TEMP 98.6; O2SAT 96
[2018-03-07] MEDS: amLODIPine 5 MG Tablet PO SCH (08:46)
[2018-03-07] MEDS: FLUoxetine 20 MG Capsule PO SCH (08:46)
[2018-03-07] MEDS: Artificial Tears Opth Oint 3.5 GM Tube RIGHT EYE SCH (08:47)
[2018-03-07] MEDS: Senna/Docusate Sodium 8.6/50 MG Tablet PO SCH (08:48)
[2018-03-07] MEDS: Acetaminophen 325 MG Tablet PO PRN (08:52)
--- NOTE | 2018-03-07 11:29 | P.DSPSY ---
Psychiatry Discharge Summary Inpatient Psychiatric care?: Yes Advance Directives: No Mental Health Advance Directive: No Health Care Proxy: No - Admission Admission Date: February 26, 2018 09:52 - Admission Diagnosis (1) Major depressive disorder Code(s): F32.9 - Major depressive disorder, single episode, unspecified Brief History: This is a 68-year-old male with a past psychiatric history of depression who presents to the hospital as a Mehta Act for suicidal ideation. 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 He explains he had a girlfriend of 15 years who helped him through some issues who also in 2011 from emphysema. He has been feeling depressed for the past 6 months and feels the worst in the morning with bad thoughts about the past. States he wakes up and asks himself whether he really wants to go through the day. No suicidal attempt, but he states "it seems like it's getting there." No prior suicidal attempts. About 2-3 nocturnal awakenings per night. Appetite is good. He is tired throughout the day and complains of lack of energy. He states that he is not as active as he would like to be and explains that his physical constraints (right corneal carcinoma, right hip arthroplasty, and foot callus) do not help. States the walker he uses at the hospital has helped with his activity. No past physical or sexual abuse. No auditory hallucinations, but complains of vague "funny" visual hallucinations (lights, not people). Complains of abdominal tightness and bilateral shoulder stiffness. Past Psychiatric History: Depression in 2000 after mother (treated w / Prozac). Past Medical History: HTN, Right corneal neoplasm treated in 2016 with lack of follow up, Right hip arthroplasty (6 years ago) Social History: Economics degree from [employer] in [place]. Has worked at [employer] for the past 11-12 years. Was at age of 19 for 2-3 years and has had several relationships since then. Female sexual preference. No children. Currently lives in an apartment on [address] with 1 roommate, but states that this is another stressor and he is not comfortable living there. He has 1 sister with an "ok" relationship who lives in [place], [place]. He thought about relocating to [place] but decided not to because he states it is too cold there. Smoker (1 pack per day), Drinks a 4 or 6 pack of alcohol (beer) about 3-4 days per week - did attend a Detox program in his 20s. Has had multiple DUIs and hasn 't been able to drive since 2001. Smoked marijuana in the past. Family Psychiatric History: None per patient Allergies: NKDA Tobacco Use In Past 30 Days: Yes How Often Do You Have a Drink Containing Alcohol: Monthly or less Hospital Course: Patient's hospital course was uneventful issue of compliance with medication from day of admission. He initially was isolating towards his room. Did have vague suicidal ideation initially that resolved after a few days. There is a hopelessness and helplessness that slowly resolved also is showing some insight and increasing his mood and affect. At this time patient reached maximum benefit of this hospitalization. He is compliant with his medication. He has been hooked up again with stroke [employer] act. Thus patient will be discharged today to himself with Rx times a month to follow-up stroke [place] act outpatient medication management - Discharge Discharge Date: 03/07/18 - Discharge Diagnosis (1) Suicidal ideation Code(s): R45.851 - Suicidal ideations Status: Acute (2) Major depressive disorder Code(s): F32.9 - Major depressive disorder, single episode, unspecified Status : Acute Discharge Disposition: Home - Discharge Instructions Discharge Diet: Regular Diet Activities You Can Perform: Regular- No Restrictions - Discharge Time > 30 minutes Mental Status Examination Appearance: Appropriate Consciousness: Alert Orientation: Person, Place, Date/Time, Situation Motor Activity: Normal gait Speech: Unremarkable Language: Adequate Fund of Knowledge: Adequate Attention and Concentration: Adequate Memory: Unremarkable Mood: Sad Affect: Other (Slight decreased range and intensity) Thought Process & Associations: Intact Thought Content: Appropriate Hallucination Type: Visual (Denies today) Delusion Type: None Suicidal Ideation: No Suicidal Plan: No Suicidal Intention: No Homicidal Ideation: No Homicidal Plan: No Homicidal Intention: No Insight: Fair Judgment: Adequate (Fair) Discharge/Advance Care Plan - Results Vital Signs: Last Vital Signs Temp 98.6 F 03/07/18 05:35 Pulse 66 03/07/18 05:35 Resp 14 03/07/18 05:35 BP 139/72 03/07/18 05:35 Pulse Ox 96 03/07/18 05:35 Lab Results: Laboratory Results Hemoglobin A1c 5.6 % (4.3-6.0) 02/27/18 06:04 Triglycerides 74 mg/dL (42-150) 02/27/18 06:04 Cholesterol 118 mg/dL (120-200) L 02/27/18 06:04 LDL Cholesterol, Calc 60 mg/dL (0-99) 02/27/18 06:04 HDL Cholesterol 43.3 mg/dL (40.0-60.0) 02/27/18 06:04 TSH 2.110 uIU/mL (0.358-3.740) 02/27/18 06:04 Summary of Procedures: None done Pending Results: None - Medications Number of antipsychotic medications at discharge: 0 - Discharge Care Plan Goals to Promote Your Health: * To prevent worsening of your condition and complications * To maintain your health at the optimal level Directions to Meet Your Goals: Take your medications as prescribed Follow your dietary instruction Follow activity as directed Keep your appointments as scheduled Take your immunizations and boosters as scheduled If your symptoms worsen call your PCP, if no PCP go to Urgent Care Center or Emergency Room For 01/11 questions related to your inpatient stay or results of tests pending at discharge, please contact Dr. Dallas Mccann MD at Smoking is Dangerous to Your Health. Avoid second hand smoking (1) Major depressive disorder Qualifiers: Major depression recurrence: recurrent Active/Remission status: currently active Major depression episode severity: severe Psychotic features: without psychotic features Qualified Code(s): F33.2 - Major depressive disorder, recurrent severe without psychotic features (2) Major depressive disorder Qualifiers: Major depression recurrence: recurrent Active/Remission status: currently active Major depression episode severity: severe Psychotic features: without psychotic features Qualified Code(s): F33.2 - Major depressive disorder, recurrent severe without psychotic features
== END 2018-03-07 12:50 | disposition home or self-care (01) ==
LOC: NEPJ 19:43 → NEDA 02-26 09:52 → H250 02-26 13:35 → H260 02-28 12:49
PROVIDERS: ADMIT Psychiatry & Neurology Psychiatry; ATTEND Psychiatry & Neurology Psychiatry